=== PATIENT | male | born 1995 | race African-American/Black ===

== ENCOUNTER 2022-04-08 16:19 | Emergency (ER) | payer SELFPAY ==
[2022-04-08] MEDS ORDERED: Lidocaine 1% (PF) 30 ML VIAL ONE (17:12)
[2022-04-08] MEDS ORDERED: Boostrix 0.5 ML (Tdap) VIAL (>/=7 yrs of age) ONE (17:13)
== END 2022-04-08 18:09 | disposition home or self-care (01) ==
LOC: ERS 16:19
DX: S61.412A Laceration without foreign body of left hand, initial encounter (principal); W25.XXXA Contact with sharp glass, initial encounter; Z23 Encounter for immunization
CPT/HCPCS: 12002; 90471; 90715; J2001

== ENCOUNTER 2022-09-01 12:02 | Emergency (ER) | payer OTHER, SELFPAY ==
[2022-09-01] MEDS ORDERED: Vancomycin 1 GM/200 ML (FROZEN) BAG ONE (14:07)
== END 2022-09-01 13:33 | disposition home or self-care (01) ==
LOC: ERS 12:02
DX: Z02.79 Encounter for issue of other medical certificate (principal)
CPT/HCPCS: 99283; J3370-JW